=== PATIENT | male | born 1995 | race Two or more races ===

== ENCOUNTER 2023-03-10 13:58 | Outpatient (OUT) | payer OTHER, SELFPAY ==
--- NOTE | 2023-03-10 15:00 | CA_ITS ---
Patient: RADU POTTER Exam Date: 03/10/2023 : 1995 Gender:M Ordering : MICHAEL SANTOS Admission #: [id number] Family : Order #: [id number] CLICK HERE TO VIEW EXAM ECHOCARDIOGRAM REPORT PROCEDURE: CA ECHO DOPPLER COMPLETE INDICATIONS: Uncontrolled HTN, Atypical chest pain, CHER, ROBLES COMPARISON: None. DESCRIPTION: COMPLETE ECHOCARDIOGRAM Real-time transthoracic echocardiography with 2D, M-mode, spectral and color flow Doppler performed. QUALITY: Technical quality was adequate. LEFT VENTRICLE: Normal chamber size. Borderline left ventricular hypertrophy. Global left ventricular systolic function is normal. LV EF: Visual estimation of left ventricular ejection fraction is 55 to 60% DIASTOLIC: Normal diastolic function. ATRIAL SEPTUM: LEFT ATRIUM: Normal chamber size. RIGHT ATRIUM: Normal chamber size. RIGHT VENTRICLE: Normal chamber size. Normal right ventricular systolic function. TRICUSPID VALVE: Normal mobility and thickness. No stenosis with trivial regurgitation. No evidence of pulmonary hypertension. RVSP 26 mmHg MITRAL VALVE: Normal mobility and thickness. No evidence of mitral valve stenosis. There is no mitral annular calcification. No mitral regurgitation. AORTIC VALVE: Normal trileaflet appearance. No visible sclerosis. Normal leaflet mobility. No evidence of aortic valve stenosis. No aortic regurgitation. AORTIC ROOT: Normal diameter and appearance. PULMONIC VALVE: Normal thickness and mobility. No stenosis. Trivial regurgitation. PERICARDIUM: No evidence of pericardial effusion. IVC: Collapses with inspirations. Normal size. PLEURA: CONCLUSION: 1. Borderline left ventricular hypertrophy with normal systolic function. LVEF is estimated at 55 to 60%. 2. Normal right ventricular size and systolic function. 3. No significant valvular dysfunction. 4. Normal right-sided pressures. 5. No pericardial effusion. Adult Echocardiography Procedure Report Left Ventricle LVEDD (3.7 - 5.6 cm): 4.36 cm LVESD (2.2 - 4.0 cm): 2.78 cm LVIVS thickness (0.6 - 1.2 cm): 1.16 cm LVPW thickness (0.5 - 1.0 cm): 1.05 cm e': 0.13 m/s E - e': 7.10 LVOT Max Gradient: 3.46 mm[Hg] LVOT Area (cm2): 0.93 m/s Peak Velocity (LVOT): 0.93 m/s Mean Velocity (LVOT): 0.75 m/s LVOT Diameter 2.04 cm Left Ventricular Ejection Fraction: 55 - 60% Left Atrium LA Volume Index (2D A2C): 21.71 ml/m2 Left Atrium Systolic Dimension: 3.88 cm Mitral Valve MV E to A Ratio: 2.13 Mitral Valve A-Wave Peak Velocity: 0.44 m/s Mitral Valve E-Wave Peak Velocity: 0.94 m/s Right Ventricle RV Internal Diastolic Dimension: 3.54 cm Aorta AO Root Diam: 2.40 cm Ascending Ao Diam: 2.59 cm Aortic Valve AoV Area (Peak Jh): 2.79 cm2, 2.79 cm2 AoV Area (VTI): 3.39 cm2, 3.39 cm2 Peak Velocity(Antegrade Flow): 1.09 m/s Peak Gradient(Antegrade Flow): 4.78 mm[Hg] Mean Velocity(Antegrade Flow): 0.78 m/s Mean Gradient(Antegrade Flow): 2.74 mm[Hg] Velocity Time Integral: 22.31 cm Tricuspid Valve Peak Velocity (Regurgitant Flow): 2.37 m/s, 2.14 m/s, 2.17 m/s Pulmonic Valve Mean Gradient: 4.51 mm[Hg] Mean Velocity: 0.97 m/s Peak Velocity: 1.46 m/s, 1.48 m/s Peak Gradient: 8.50 mm[Hg], 8.73 mm[Hg] Right Atrium Right Atrium Systolic Pressure: 60.26 ml, 60.26 ml Dictated by: Chester Saxena M.D. on 03/11/2023 at 19:14 Approved by: Chester Saxena M.D. on 03/11/2023 at 19:18
[2023-03-10 15:52] LABS: Anion Gap 11.1; BUN Creatinine Ratio 6.5; Calcium 9.4 mg/dL (8.5-10.1); Carbon Dioxide 30.7 mmol/L (21.0-32.0); Chloride 104 mmol/L (98-107); Estimated GFR (African America >60 (>=60); Estimated GFR (Non-African Ame >60 (>=60); Glucose 80 mg/dL (74-106); Potassium 3.8 mmol/L (3.5-5.1); Sodium 142 mmol/L (136-145)
== END 2023-03-10 13:59 | disposition home or self-care (01) ==
LOC: CARD 14:02
PROVIDERS: Visit Provider Nurse Practitioner
DX: I10 Essential (primary) hypertension (principal); R07.89 Other chest pain; R60.0 Localized edema; R06.09 Other forms of dyspnea
CPT/HCPCS: 36415; 80048; 93306